=== PATIENT | female | born 1980 | race Two or more races ===

== ENCOUNTER 2024-10-23 23:08 | Emergency (ER) | payer BC ==
[~2024-10-23] VITALS: Ht 167.6 cm; Wt 56.7 kg
[2024-10-23] MEDS ORDERED: NAPROXEN 500 MG TABLET ONE (23:50)
[2024-10-23] MEDS ORDERED: IBUP-1955 PO (23:54)
[2024-10-23] MEDS ORDERED: ACET-3102 PO (23:54)
[2024-10-24] MEDS: NAPROXEN 500 MG TABLET PO ONE (00:11)
[2024-10-24 01:10] VITALS: BP 95/60; O2SAT 99
== END 2024-10-24 00:56 | disposition home or self-care (01) ==
LOC: ER 23:23
DX: M54.9 Dorsalgia, unspecified (principal); M25.571 Pain in right ankle and joints of right foot; F17.210 Nicotine dependence, cigarettes, uncomplicated; Z87.19 Personal history of other diseases of the digestive system; V43.52XA Car driver injured in collision with other type car in traffic accident, initial encounter; Y93.89 Activity, other specified; Y92.488 Other paved roadways as the place of occurrence of the external cause; Y99.8 Other external cause status
CPT/HCPCS: 72050; 72072; 72110; 73610; A4606; A4663